=== PATIENT | female | born 1945 | race Caucasian/White ===

== ENCOUNTER 2021-11-18 01:57 | Inpatient (IN) | payer OTHER, SELFPAY ==
[2021-11-18] VITALS (21 sets, daily range): BP systolic 92–127; BP diastolic 36–84; PULSE 86–113; RESP 14–24; TEMP 36.3–36.6; O2SAT 96–100; BMI 32.4
--- NOTE | ~2021-11-18 | XR_ITS ---
EXAMINATION: XR chest 1V portable INDICATION: GI bleeding TECHNIQUE: Portable AP chest at zero 211 COMPARISON: 06/03/2013 FINDINGS: The lungs are free of acute opacities. No pleural effusion or pneumothorax. The cardiomedia stinal silhouette is normal. Calcified pulmonary nodules and calcified left hilar lymph nodes are con sistent with old granulomatous disease. IMPRESSION: 1. No acute cardiopulmonary abnormality. Reviewed, dictated and finalized at location A.
--- NOTE | 2021-11-18 02:01 | ECG_ITS ---
Measurements Intervals [place] Rate: 109 P: 62 OR: 168 QRS: -5 QRSD: 100 T: 74 QT: 341 QTc: 460 Interpretive Statements SINUS TACHYCARDIA LOW QRS VOLTAGE IN PRECORDIAL LEADS [QRS DEFLECTION < 1.0 mV IN CHEST LEADS] CANNOT RULE OUT ANTERIOR MYOCARDIAL INFARCTION, AGE INDETERMINATE ABNORMAL ECG NO PREVIOUS ECG AVAILABLE FOR COMPARISON Electronically Signed On 11-18-2021 14:38:21 CDT by Steven Obando M.D.
[2021-11-18] MEDS: PANTOPRAZOLE SODIUM IV 40 MG VIAL 80 MG IV PUSH (02:06)
--- NOTE | 2021-11-18 02:08 | ED.GIBLEED ---
HPI - GI Bleed General Chief complaint: GI Bleed Stated complaint: GI BLEED, HYPOTENSION History of Present Illness HPI Narrative: 76-year-old female brought in by ambulance. They called 911 tonight because she was extremely weak and needed some assistance getting up. When they got there the patient began having nausea vomiting and throwing up large quantities of coffee ground emesis with some blood clots in it. About the time this occurred she also had a brief syncopal episode and was unresponsive for about 30 seconds. She was noted to be somewhat hypotensive with a systolic pressure in the 80s in the field. Initiated IV and began a fluid bolus. Patient then was promptly brought to the emergency room. Patient denies any history of any upper GI bleeding in the past. She is not taking excessive use of nonsteroidal anti-inflammatories. She does have a pretty complicated medical history and most of her care has been provided to her at [facility] in [place]. She states they have been treated her a one-time for presumed seizures. She also has CLL is being seen an oncologist for that. She also has some degree of hypertension and congestive heart failure. She denies any abdominal pain. She had a very dark black stool this morning but has not been having it prior to that. Related Data Home Medications Medication Instructions Recorded Confirmed atorvastatin 40 mg tablet 40 mg PO HS 11/18/21 11/18/21 furosemide 20 mg tablet (Lasix) 20 mg PO DAILY 11/18/21 ibrutinib 420 mg tablet 420 mg PO DAILY 11/18/21 11/18/21 levetiracetam 750 mg tablet 750 mg PO BID 11/18/21 11/18/21 loteprednol etabonate 0.2 % eye drp 11/18/21 drops,suspension (Alrex) midodrine 2.5 mg tablet 2.5 mg PO BID 11/18/21 11/18/21 pantoprazole 40 mg tablet,delayed 40 mg PO HS 11/18/21 11/18/21 release pantoprazole 40 mg tablet,delayed 40 mg PO QAM 11/18/21 11/18/21 release (Protonix) spironolactone 100 mg tablet 100 mg PO DAILY 11/18/21 11/18/21 valacyclovir 500 mg tablet 500 mg PO DAILY 11/18/21 Allergies Allergy/AdvReac Type Severity Reaction Status Date / Time cephaloridine Allergy Unknown Unknown Verified 05/03/17 23:48 Penicillins Allergy Unknown Unknown Verified 05/03/17 23:48 adhesive tape Allergy Unknown Verified 11/18/21 02:12 cefazolin Allergy Unknown Verified 11/18/21 02:12 cefepime Allergy Unknown Verified 11/18/21 02:12 cefuroxime Allergy Unknown Verified 11/18/21 02:12 Cephalosporins Allergy Unknown Verified 11/18/21 02:12 ciprofloxacin Allergy Unknown Verified 11/18/21 02:12 silicone Allergy Unknown Verified 11/18/21 02:12 Review of Systems Review of Systems: CONSTITUTIONAL: Denies fever, chills, or sweats. EYES: Denies visual changes, redness, or discharge. ENT: Denies rhinorrhea, congestion, sore throat, or otalgia. CARDIOVASCULAR: Denies chest pain, palpitations, or edema. RESPIRATORY: Denies cough or dyspnea. GASTROINTESTINAL: Vomiting of blood clots and coffee-ground emesis. No diarrhea denies any abdominal pain GENITOURINARY: Denies dysuria or hematuria. SKIN: Denies rash or itching. MUSCULOSKELETAL: Denies back pain, joint pain, or myalgia. NEUROLOGIC: Denies headache, numbness, or weakness. PSYCHIATRIC: Denies anxiety or depression. FORMERLY [facility], [facility]–1983 Past Medical History Medical History (Updated 11/18/21 @ 04:05 by Prosper Michel DO) Breast cancer CLL (chronic lymphocytic leukemia) Congestive heart failure Hypertension Seizure disorder Surgical History Surgical History (Updated 11/18/21 @ 02:23 by Prosper Michel DO) H/O bilateral mastectomy Family History Family History Father Cerebrovascular accident, Onset Age: 70 Patient's father is Mother Cerebrovascular accident, Onset Age: 75 Patient's mother is Sibling Family history of malignant neoplasm of breast in first degree relative Social History Soc
[2021-11-18] MEDS: ONDANSETRON INJ 4 MG/2 ML VIAL IV PUSH ×3 (02:09→12:02)
[2021-11-18] MEDS: SODIUM CHLORIDE 0.9% IV 1,000 ML 125 ML IV CONT ×2 (02:10→12:38)
[2021-11-18 02:30] LABS: Basophils Absolute Auto 0.1 K/mm3 (0.0-0.1); Basophils Percent Auto 0.1 % (0.2-1.2); Eosinophils Absolute Auto 0.2 K/mm3 (0-0.3); Eosinophils Percent Auto 0.2 % (0-4.4); Hematocrit 27.6 % (37.0-47.0); Immature Granulocyte Absolute 0.17 K/mm3 (0.00-0.031); Immature Granulocyte Percent A 0.2 % (0-0.5); Lymphocytes Absolute Auto 85.77 K/mm3 (0.9-3.2); Lymphocytes Percent Auto 92.5 % (18.3-44.2); Mean Corpuscular Hemoglobin 30.5 pg (26-34); Mean Corpuscular Volume 105.3 fl (80-100); Mean Platelet Volume 11.9 fl (7.4-10.4); Monocytes Absolute Auto 1.8 K/mm3 (0.1-0.6); Monocytes Percent Auto 1.9 % (2.6-8.5); Neutrophils Absolute Auto 4.8 K/mm3 (1.3-6.7); Neutrophils Percent Auto 5.1 % (45.5-73.1); Platelet Count Result 180 k/mm3 (150-375); Red Blood Count 2.62 M/mm3 (4.2-5.4); Red Cell Distribution Width 16.4 % (11.5-14.5)
[2021-11-18 02:41] LABS: Alanine Aminotransferase 34 U/L (6-35); Albumin Level 3.1 g/dL (3.5-5.1); Alkaline Phosphatase 73 U/L (38-126); Anion Gap 11 mmol/L (8-16); Aspartate Amino Transferase 39 U/L (14-36); Blood Urea Nitrogen 70 mg/dL (7-17); Calcium 9.8 mg/dL (8.4-10.2); Carbon Dioxide 23 mmol/L (22-30); Chloride 101 mmol/L (98-107); Estimated CRCL calculation 37 ml/min; Estimated Glomerular Filt Rate 40; Glucose 112 mg/dL (65-110); INR 1.2; Partial Thromboplastin Time 26.4 SECONDS (22.3-36.8); Potassium 4.4 mmol/L (3.4-5.0); Sodium 135 mmol/L (137-145)
[2021-11-18 02:50] LABS: White Blood Count 92.7 K/mm3 (4.5-10.0)
[2021-11-18 03:11] LABS: Anisocytosis 1+ (NORMAL); Macrocytosis 1+ (NORMAL); Platelet Estimate Adequate (Adequate)
--- NOTE | 2021-11-18 03:51 | PM.IMHP ---
H&P: HPI History of Present Illness Date/Time: 11/18/21 03:51 Chief Complaint: hematemesis Narrative: This is a 76-year-old female with past medical history significant for CLL, breast cancer, hypertension, congestive heart failure. Patient was in her usual state of health until chief design branch hours when she went to use her commode fell over backwards on the bed and then bouncing to the floor who was awake her the known is and found her down called EMS to help placing her back in the bed once EMS arrived and they were trying to place her back in the bed she had an episode of unresponsiveness and large hematemesis. history has been obtained mainly from who is at bedside as patient is debilitated and obtunded unable to give any history. in emergency room patient had another hematemesis. Patient denies the use of NSAIDs only uses Tylenol has epigastric abdominal pain. Preliminary workup was significant for WBC 49042, hemoglobin of 8, MCV 105, BUN 70 creatinine 1.3. patient had systolic running in the 90s with diastolic in the 60s. Patient is been admitted for further evaluation management and treatment. [facility] Past Medical History Medical History (Updated 11/18/21 @ 06:01 by José Miguel Verduzco MD) Breast cancer CLL (chronic lymphocytic leukemia) Congestive heart failure Hypertension Seizure disorder Surgical History Surgical History (Updated 11/18/21 @ 02:23 by Prosper Michel DO) H/O bilateral mastectomy Family History Family History Father Cerebrovascular accident, Onset Age: 70 Patient's father is Mother Cerebrovascular accident, Onset Age: 75 Patient's mother is Sibling Family history of malignant neoplasm of breast in first degree relative Social History Social History Smoking status: Never smoker Alcohol intake: never Substance use: never Substance use type: does not use Living arrangements: with family Spiritual care concerns: No Meds Home Medications and Allergies Home Medications Medication Instructions Recorded Confirmed Type atorvastatin 40 mg tablet 40 mg PO HS 11/18/21 11/18/21 History furosemide 20 mg tablet (Lasix) 20 mg PO DAILY 11/18/21 History ibrutinib 420 mg tablet 420 mg PO DAILY 11/18/21 11/18/21 History levetiracetam 750 mg tablet 750 mg PO BID 11/18/21 11/18/21 History loteprednol etabonate 0.2 % eye drp 11/18/21 History drops,suspension (Alrex) midodrine 2.5 mg tablet 2.5 mg PO BID 11/18/21 11/18/21 History pantoprazole 40 mg tablet,delayed 40 mg PO HS 11/18/21 11/18/21 History release pantoprazole 40 mg tablet,delayed 40 mg PO QAM 11/18/21 11/18/21 History release (Protonix) spironolactone 100 mg tablet 100 mg PO DAILY 11/18/21 11/18/21 History valacyclovir 500 mg tablet 500 mg PO DAILY 11/18/21 History Allergies Allergy/AdvReac Type Severity Reaction Status Date / Time cephaloridine Allergy Unknown Unknown Verified 05/03/17 23:48 Penicillins Allergy Unknown Unknown Verified 05/03/17 23:48 adhesive tape Allergy Unknown Verified 11/18/21 02:12 cefazolin Allergy Unknown Verified 11/18/21 02:12 cefepime Allergy Unknown Verified 11/18/21 02:12 cefuroxime Allergy Unknown Verified 11/18/21 02:12 Cephalosporins Allergy Unknown Verified 11/18/21 02:12 ciprofloxacin Allergy Unknown Verified 11/18/21 02:12 silicone Allergy Unknown Verified 11/18/21 02:12 Vital Signs Vital Signs - 24 hr 11/18/21 01:59 11/18/21 02:21 11/18/21 02:41 Temperature 97.3 F L Pulse Rate 113 H 108 H Respiratory Rate 23 H 24 H Blood Pressure 111/69 109/63 92/67 L Pulse Oximetry 98 97 Oxygen Delivery Room Air 11/18/21 03:03 11/18/21 02:41 11/18/21 02:45 Temperature Pulse Rate 102 H 108 H 107 H Respiratory Rate 16 Blood Pressure 102/72 92/67 L Pulse Oximetry 97 97 97 Oxygen Deli
--- NOTE | 2021-11-18 03:59 | PC.NURSE ---
0358 Thalia from [facility] transfer center calls to get triage information and to request a covid swab and result. Thalia leaves her number of [phone] to call back when her covid results.
--- NOTE | 2021-11-18 04:40 | PC.NURSE ---
This patient, Eula Espinoza, was admitted to Intensive Care Unit-4. Patient/family oriented to hospital policies and general routines including ID bracelet, bed and alarms, visiting hours, pain management, procedures, bathroom and other care routines, personal items, smoking policy, room service/diet, and visiting hours. Information on how to activate the Rapid Response Team has been discussed. Patient/Family are encouraged to report perceived risks to care and to ask questions if they do not understand what they are told or what they should do.
[2021-11-18 04:46] LABS: SARS-CoV-2 RNA PCR Negative
[2021-11-18 06:43] LABS: Smudge Cells PRESENT
--- NOTE | 2021-11-18 07:00 | PC.NURSE ---
0630 Thalia from [facility] transfer center [id number] Number to [facility] [phone]. Accepting MD Dr Crane.
[2021-11-18] MEDS: levETIRAcetam IV 750 MG in DEXTROSE 5% 100 ML 430 MG IVPB (09:09)
[2021-11-18 09:32] LABS: Hematocrit 30.4 % (37.0-47.0); Hemoglobin 9.1 g/dL (12.0-15.0); Mean Corpuscular HGB Conc 29.9 g/dl (32-36); Mean Corpuscular Hemoglobin 31.9 pg (26-34); Mean Corpuscular Volume 106.7 fl (80-100); Mean Platelet Volume 11.4 fl (7.4-10.4); Platelet Count Result 123 k/mm3 (150-375); Red Blood Count 2.85 M/mm3 (4.2-5.4)
[2021-11-18 09:40] LABS: White Blood Count 50.6 K/mm3 (4.5-10.0)
--- NOTE | 2021-11-18 10:26 | WPDCNINT ---
Assessment and Plan Assessment and plan (1) Acute upper gastrointestinal bleeding: Code(s): K92.2 - Gastrointestinal hemorrhage, unspecified Status: Acute Assessment and Plan: Patient presented with acute upper GI bleeding which could be secondary to peptic ulcer disease versus Marilou-Mann tear or gastritis. Malignancy is also possible. Coags were normal Chest x-ray was negative Continue IV PPI infusion Patient was transfused 1 unit PRBC and most recent hemoglobin is 9.1 Continue serial hemoglobin monitoring GI has been consulted but patient is awaiting transfer to [facility] Blood pressure is adequate at this time and will continue monitoring Will give IV fluid bolus and continue IV fluid infusion (2) Acute blood loss anemia: Code(s): D62 - Acute posthemorrhagic anemia Status: Acute Assessment and Plan: See above (3) Chronic lymphocytic leukemia: Code(s): C91.10 - Chronic lymphocytic leukemia of B-cell type not having achieved remission Status: Acute Assessment and Plan: Treatment deferred to accepting physician as patient is being transferred to [facility] (4) Seizure disorder: Code(s): G40.909 - Epilepsy, unspecified, not intractable, without status epilepticus Status: Acute Assessment and Plan: Continue Keppra I will change it to IV (5) Nausea: Code(s): R11.0 - Nausea Status: Acute Assessment and Plan: Ananda Mccracken Plan DVT prophylaxis -SCDs Stress ulcer prophylaxis -patient is on PPN few Nutrition -NPO Code Status - Full Code Patient is awaiting transfer to [facility] [employer] Consult Note Consult date: 11/18/21 Reason for consult: Upper GI bleed HPI: Eula Espinoza is a 76 year old female brought by EMS with upper GI bleed. Patient was using a bedside commode at night when she became dizzy and passed out. She slumped on the bed was right beside the commode. Her could not get her back in the bed has called EMS. When EMS arrived patient had a vomiting which had blood as stated with hence patient was brought to ER. In ER patient was hypertensive and was given IV fluid bolus hemoglobin was 8 and PRBC transfusion was ordered. Patient was admitted to ICU for further evaluation management. Patient at this time states that she is feeling much better and denies any new complaints. She states she still has nausea but no other complaints. Patient denies fever, chest pain, shortness of breath, cough, abdominal pain,, diarrhea, headache or constipation. She states she does have trouble with ambulation and requires wheelchair. She does report episodes of dizziness. She states that she did pass out for short period of time but did not hit her head as she slumped over in her bed. She states that she goes to [facility] for all her healthcare including treatment for CLL. She denies any use of NSAIDs She denies smoking alcohol or drug use Review of Systems Review of Systems: All systems reviewed & are unremarkable except as noted in HPI and below (HPI) [facility] Past Medical History Medical History Breast cancer CLL (chronic lymphocytic leukemia) Congestive heart failure Hypertension Seizure disorder Surgical History Surgical History H/O bilateral mastectomy Family History Family History Father Cerebrovascular accident, Onset Age: 70 Patient's father is Mother Cerebrovascular accident, Onset Age: 75 Patient's mother is Sibling Family history of malignant neoplasm of breast in first degree relative Social History Social History Smoking status: Never smoker Alcohol intake: never Substance use: never Substance use type: does not use Living ar
[2021-11-18] MEDS: LACTATED RINGERS 1,000 ML 999 ML IV CONT (10:52)
--- NOTE | 2021-11-18 10:53 | PM.IMPN ---
Progress Note: A&P Assessment and Plan (1) Acute upper gastrointestinal bleeding: Code(s): K92.2 - Gastrointestinal hemorrhage, unspecified Status: Acute Assessment and Plan: Patient presented with acute upper GI bleeding which could be secondary to peptic ulcer disease versus Marilou-Mann tear or gastritis. Malignancy is also possible. Coags were normal Continue IV PPI infusion Status post transfusion. Plan to transfer to [place] (2) Acute blood loss anemia: Code(s): D62 - Acute posthemorrhagic anemia Status: Acute Assessment and Plan: See above (3) Chronic lymphocytic leukemia: Code(s): C91.10 - Chronic lymphocytic leukemia of B-cell type not having achieved remission Status: Acute Assessment and Plan: Treatment deferred to accepting physician as patient is being transferred to [facility] (4) Seizure disorder: Code(s): G40.909 - Epilepsy, unspecified, not intractable, without status epilepticus Status: Acute Assessment and Plan: Continue Keppra I will change it to IV (5) Nausea: Code(s): R11.0 - Nausea Status: Acute Assessment and Plan: P.rnelia Mccracken Plan DVT prophylaxis -SCDs Stress ulcer prophylaxis -patient is on PPN few Nutrition -NPO Code Status - Full Code Patient is awaiting transfer to [facility] Subjective Date/time seen: 11/18/21 10:53 No complaints, awaiting transfer to outside facility Exam Narrative: General: Pt is alert awake and in NAD Lungs/Chest: Trachea central Clear BS B/L, No crackles or wheezing. Cardiac: RRR. Normal S1 S2. No murmurs Circulation: Pedal pulses are intact and symmetrical. Abdomen: Normal bowel sounds.. Soft. NT. ND. Extremities: No clubbing, cyanosis or edema. Warm : Gusman in place Neurologic: Follows commands. Moves all 4 extremities PERRL Skin: No Rash Objective Data Vital Signs Vital Signs: Vital Signs - 24 hr 11/18/21 01:59 11/18/21 02:21 11/18/21 02:41 Temperature 97.3 F L Pulse Rate 113 H 108 H Respiratory Rate 23 H 24 H Blood Pressure 111/69 109/63 92/67 L Pulse Oximetry 98 97 Oxygen Delivery Room Air 11/18/21 03:03 11/18/21 02:41 11/18/21 02:45 Temperature Pulse Rate 102 H 108 H 107 H Respiratory Rate 16 Blood Pressure 102/72 92/67 L Pulse Oximetry 97 97 97 Oxygen Delivery 11/18/21 03:00 11/18/21 03:01 11/18/21 03:15 Temperature Pulse Rate 101 H 101 H 102 H Respiratory Rate 14 15 Blood Pressure 102/72 Pulse Oximetry 96 97 98 Oxygen Delivery 11/18/21 03:21 11/18/21 04:03 11/18/21 04:30 Temperature 97.5 F L 97.5 F L Pulse Rate 105 H 109 H Respiratory Rate 19 21 H Blood Pressure 103/68 110/48 L Pulse Oximetry 98 96 Oxygen Delivery 11/18/21 04:56 11/18/21 06:00 11/18/21 06:00 Temperature 97.5 F L 97.5 F L Pulse Rate 103 H 99 99 Respiratory Rate 15 15 Blood Pressure 118/51 L 121/58 L Pulse Oximetry 100 100 Oxygen Delivery 11/18/21 05:12 11/18/21 06:12 11/18/21 07:12 Temperature 97.5 F L 97.6 F 97.7 F Pulse Rate 103 H 96 91 Respiratory Rate 16 17 16 Blood Pressure 114/56 L 109/46 L 117/65 Pulse Oximetry 100 99 99 Oxygen Delivery 11/18/21 07:52 11/18/21 07:56 11/18/21 08:00 Temperature 97.8 F Pulse Rate 94 Respiratory Rate 22 H Blood Pressure 116/84 Pulse Oximetry 100 100 Oxygen Delivery Room Air Room Air 11/18/21 08:00 11/18/21 08:00 Temperature 97.8 F Pulse Rate 90 90 Respiratory Rate 19 Blood Pressure 104/36 L Pulse Oximetry 100 Oxygen Delivery Intake/Output Intake/Output: Intake & Output 11/15/21 11/16/21 11/17/21 11/18/21 23:59 23:59 23:59 23:59 Intake Total 350 Balance 350 Meds/Results Medications: Active Medications Generic Name Dose Route Start Last Admin Trade Name Freq PRN Reason Stop Dose Admin Sodium Chloride 1,000 mls @ 125 mls/hr 11/18/21 02:00 11/18/21 02:10 Normal Saline Iv IV CONT 1
[2021-11-18] MEDS: TUBING, BLOOD PLUM PUMP TUBING 1 EACH XX (12:38)
--- NOTE | 2021-11-18 13:12 | PC.NURSE ---
Patient transferred to [facility] Room 10-823 at 1312 via ambulance. Report given to ASHLEY Vee.
--- NOTE | 2021-12-26 06:12 | PM.TDS ---
Transfer Discharge Sum: Prov Provider Date of admission: 11/18/21 03:58 Primary care physician: PHYSICIAN NOT ON STAFF Admitting clinician: José Miguel Verduzco MD Consults: 11/18/21 Consult to Physician Routine Comment: Consulting Provider: Valdez Coello Reason for consultation: Upper GI Bleed Has provider been notified: Yes Consult to Physician Routine Comment: Consulting Provider: Jasen Pacheco Reason for consultation: Upper GI Bleed Has provider been notified: Yes DS: Admitting Diagnosis Discharge Date 11/18/21 Admitting Diagnosis recurrent upper GI bleeding DS: Discharge Diagnosis Discharge Diagnosis Plan Acute on chronic blood-loss anemia: Transfuse as needed. Transfer to outside facility Patient presented to ED with recurrent upper GI bleeding.? Recent hospitalization at [facility] with cauterization of duodenal ulcers.? Recurrent melena, dark red bleeding per rectum.? BP upon arrival 70/52, with heart rate greater than 100.? Patient very pale and weak appearing.? Fluids started immediately.? Patient's BP improved to 110s.? Laboratory evaluation showing markedly elevated leukocytosis of 36.4.? This is consistent with patient's history of CLL.? This is improved from labs on 11/18 in which her white blood cell count was up to 92,000. Hemoglobin today 6.9, hematocrit 22%.? Type and screen ordered with 2 units of packed red blood cells.? Thrombocytopenia at 104.? INR 1.1.? CMP revealing BUN of 23 with normal creatinine, consistent with acute GI bleeding.? Potassium slightly low at 3.? This will be replaced via IV.? Bicarb low at 14, consistent with GI losses.? Calcium also low at 6.6.? IV calcium gluconate started. VS continue to stabilize.? Discussed case with [facility] and spoke with oncology fellow.? Recommend adding on fibrinogen level.? Resulted at 210.? Per patient's recent lab reports yesterday, hemoglobin has dropped almost 3 points in the last 24 hours since discharge.? Patient has been accepted for transfer and admission to [facility] under her oncologist.? COVID testing ordered and transfer center will be notified of results to begin bed search. I was told there should be a bed available under Oncology service.? I have thoroughly discussed case findings and plan for transfer with patient and family at bedside.? They are in agreement.? All questions answered.? Transfer Discharge Sum: Med Medications Active and Home Medications: Home Medications atorvastatin 40 mg tablet 40 mg PO HS 11/18/21 [History Confirmed 11/18/21] furosemide 20 mg tablet (Lasix) 20 mg PO DAILY 11/18/21 [History] ibrutinib 420 mg tablet 420 mg PO DAILY 11/18/21 [History Confirmed 11/18/21] levetiracetam 750 mg tablet 750 mg PO BID 11/18/21 [History Confirmed 11/18/21] loteprednol etabonate 0.2 % eye drops,suspension (Alrex) drp 11/18/21 [History] midodrine 2.5 mg tablet 2.5 mg PO BID 11/18/21 [History Confirmed 11/18/21] pantoprazole 40 mg tablet,delayed release 40 mg PO HS 11/18/21 [History Confirmed 11/18/21] pantoprazole 40 mg tablet,delayed release (Protonix) 40 mg PO QAM 11/18/21 [History Confirmed 11/18/21] spironolactone 100 mg tablet 100 mg PO DAILY 11/18/21 [History Confirmed 11/18/21] valacyclovir 500 mg tablet 500 mg PO DAILY 11/18/21 [History] Transfer Discharge Sum: Hosp Hospital Course Hospital course: Eula Espinoza is a 76 year old female Time Spent with Patient Time attestation: Total time spent providing and/or coordinating transfer services: Exam Narrative: PATIENT IS LAYING IN A STRETCHER CHRONICALLY ILL-LOOKING GENERALIZED PALLOR Const: General: comfortable, no acute distress, well developed, alert and awake Nutritional Appearance: average body habitus Orientation/consciousness: patient oriented x3 HENMT: Head: normal to inspection, normocephalic and atraumatic Ears: hearing grossly normal bilaterally Face and sinus: normal facial exam Eyes: General: appeara
== END 2021-11-18 13:12 | disposition short-term general hospital (02) | DRG 378 ==
LOC: ANHED 04:05 → ANHICU 04:33
PROVIDERS: Internal Medicine; Admitting Provider Internal Medicine; Emergency Provider Emergency Medicine; Visit Provider Internal Medicine
DX: K92.2 Gastrointestinal hemorrhage, unspecified (principal); C91.10 Chronic lymphocytic leukemia of B-cell type not having achieved remission; D62 Acute posthemorrhagic anemia; K92.0 Hematemesis; G40.909 Epilepsy, unspecified, not intractable, without status epilepticus; Z20.822 Contact with and (suspected) exposure to COVID-19; I11.0 Hypertensive heart disease with heart failure; I50.9 Heart failure, unspecified; R53.81 Other malaise; D69.6 Thrombocytopenia, unspecified; Z85.3 Personal history of malignant neoplasm of breast
CPT/HCPCS: 36415; 36430; 71045; 80053; 85025; 85027; 85610; 85730; 86850; 86900; 86901; 86920; 93005; 96374; 96375; 99285; C9113; C9803; J1953; J2405; J7030; J7060; J7120; P9016; U0003; U0005

== ENCOUNTER 2021-11-25 14:33 | Emergency (ER) | payer OTHER, SELFPAY ==
[2021-11-25] VITALS (20 sets, daily range): BP systolic 70–128; BP diastolic 41–74; PULSE 83–106; RESP 13–26; TEMP 35.9–36.6; O2SAT 94–100
[2021-11-25 14:56] LABS: Basophils Absolute Auto 0.1 K/mm3 (0.0-0.1); Basophils Percent Auto 0.2 % (0.2-1.2); Eosinophils Absolute Auto 0.2 K/mm3 (0-0.3); Eosinophils Percent Auto 0.4 % (0-4.4); Immature Granulocyte Percent A 0.3 % (0-0.5); Immature Platelet Fraction Pct 3.6 % (0.9-11.2); Lymphocytes Absolute Auto 30.92 K/mm3 (0.9-3.2); Mean Corpuscular HGB Conc 31.4 g/dl (32-36); Mean Corpuscular Hemoglobin 31.2 pg (26-34); Mean Corpuscular Volume 99.5 fl (80-100); Mean Platelet Volume 10.8 fl (7.4-10.4); Monocytes Absolute Auto 1.1 K/mm3 (0.1-0.6); Neutrophils Absolute Auto 4.1 K/mm3 (1.3-6.7); Neutrophils Percent Auto 11.1 % (45.5-73.1); Platelet Count Result 104 k/mm3 (150-375); Red Blood Count 2.21 M/mm3 (4.2-5.4); Red Cell Distribution Width 19.9 % (11.5-14.5); White Blood Count 36.4 K/mm3 (4.5-10.0)
[2021-11-25 15:05] LABS: Alanine Aminotransferase 21 U/L (6-35); Albumin Level 1.5 g/dL (3.5-5.1); Alkaline Phosphatase 43 U/L (38-126); Anion Gap 8 mmol/L (8-16); Aspartate Amino Transferase 24 U/L (14-36); Bilirubin,Total 1.2 mg/dL (0.2-1.3); Blood Urea Nitrogen 23 mg/dL (7-17); Calcium 6.6 mg/dL (8.4-10.2); Carbon Dioxide 14 mmol/L (22-30); Chloride 118 mmol/L (98-107); Estimated CRCL calculation 67 ml/min; Estimated Glomerular Filt Rate > 60; Glucose 130 mg/dL (65-110); Sodium 140 mmol/L (137-145)
[2021-11-25 15:17] LABS: INR 1.4
[2021-11-25 15:18] LABS: Partial Thromboplastin Time 29.1 SECONDS (22.3-36.8)
--- NOTE | 2021-11-25 15:30 | ED.GENADULT ---
HPI - General Adult General Chief complaint: GI Bleed <Eryn Ren PA-C - Last Filed: 11/25/21 18:11> Stated complaint: rectal bleeding, low bp <AFUA Love Last Filed: 11/25/21 18:11> Time Seen by Provider: 11/25/21 15:10 <AFUA Love Last Filed: 11/25/21 18:11> Source: patient, family and old records reviewed <AFUA Love Last Filed: 11/25/21 18:11> Mode of arrival: EMS <AFUA Love Last Filed: 11/25/21 18:11> Limitations: no limitations <AFUA Love Last Filed: 11/25/21 18:11> History of Present Illness HPI narrative: Patient is a 76-year-old female who presents the ED via EMS with report of GI bleed. Patient was seen in the ED on 11/18 here for weakness, hypotension, upper GI bleeding. She was admitted to the ICU here until a bed became available at [facility] where she was transferred. Patient has a history of CLL for which she sees oncology at [facility]. She was admitted for 6 days at [place] and discharged home yesterday. Family at bedside states she was found to have esophageal and duodenal ulcers. She had the duodenal ulcers cauterized while inpatient. She was doing well at first being home, but began having melanotic stools again last night. She had several large episodes of dark red/black bleeding per rectum with clots today. They attempted to drive back to [place] today, but patient became very weak and hypotensive at home. EMS was then called. BP per EMS was 60s over 40s. They did not feel comfortable with transport to [place] and thus patient was brought here. Patient is complaining of lower back pain and upper abdominal pain. No nausea currently. No fever. Dark red blood noted on sheets and down patient's legs. <AFUA Love Last Filed: 11/25/21 18:11> Related Data Home medications: Home Medications Medication Instructions Recorded Confirmed atorvastatin 40 mg tablet 40 mg PO HS 11/18/21 11/18/21 furosemide 20 mg tablet (Lasix) 20 mg PO DAILY 11/18/21 ibrutinib 420 mg tablet 420 mg PO DAILY 11/18/21 11/18/21 levetiracetam 750 mg tablet 750 mg PO BID 11/18/21 11/18/21 loteprednol etabonate 0.2 % eye drp 11/18/21 drops,suspension (Alrex) midodrine 2.5 mg tablet 2.5 mg PO BID 11/18/21 11/18/21 pantoprazole 40 mg tablet,delayed 40 mg PO HS 11/18/21 11/18/21 release pantoprazole 40 mg tablet,delayed 40 mg PO QAM 11/18/21 11/18/21 release (Protonix) spironolactone 100 mg tablet 100 mg PO DAILY 11/18/21 11/18/21 valacyclovir 500 mg tablet 500 mg PO DAILY 11/18/21 <AFUA Love Last Filed: 11/25/21 18:11> Allergies/adverse reactions: Allergies Allergy/AdvReac Type Severity Reaction Status Date / Time cephaloridine Allergy Unknown Unknown Verified 05/03/17 23:48 Penicillins Allergy Unknown Unknown Verified 05/03/17 23:48 adhesive tape Allergy Unknown Verified 11/18/21 02:12 cefazolin Allergy Unknown Verified 11/18/21 02:12 cefepime Allergy Unknown Verified 11/18/21 02:12 cefuroxime Allergy Unknown Verified 11/18/21 02:12 Cephalosporins Allergy Unknown Verified 11/18/21 02:12 ciprofloxacin Allergy Unknown Verified 11/18/21 02:12 silicone Allergy Unknown Verified 11/18/21 02:12 <AFUA Love Last Filed: 11/25/21 18:11> Review of Systems Review of Systems: CONSTITUTIONAL: Denies fever, chills, or sweats. GASTROINTESTINAL: Reports upper abdominal pain, melena. Denies nausea, vomiting. MUSCULOSKELETAL: Reports lower back pain. <AFUA Love Last Filed: 11/25/21 18:11> All systems reviewed & are unremarkable except as noted in HPI and below <AFUA Love Last Filed: 11/25/21 18:11> [facility] Past Medical History Medical History: Medical History (Updated 11/26/21 @ 00:00 by Background Lan) Breast cancer CLL (chronic lymphocytic leukemia) Congestive heart fa
[2021-11-25 15:36] LABS: Hemoglobin 6.9 g/dL (12.0-15.0)
[2021-11-25 15:38] LABS: Platelet Estimate Decreased (Adequate)
[2021-11-25 15:39] LABS: Anisocytosis 1+ (NORMAL); Hypochromasia 1+ (NORMAL); Smudge Cells PRESENT
[2021-11-25] MEDS: CALCIUM GLUC 1,000 MG/NS 100ML 1,000 MG/100 ML BAG 200 MG IVPB (16:12)
[2021-11-25] MEDS: fentaNYL CITRATE INJ (*CRX) 100 MCG/2 ML VIAL 25 MCG IV PUSH ×3 (16:27→21:40)
[2021-11-25] MEDS: POTASSIUM CHLORIDE INJ 40 MEQ in SODIUM CHLORIDE 0.9% IV 500 ML 130 MEQ IVPB (16:29)
[2021-11-25] MEDS: PANTOPRAZOLE SODIUM IV 40 MG VIAL IV PUSH (17:03)
[2021-11-25 17:22] LABS: Fibrinogen 210 mg/dl (215-510)
[2021-11-25 17:45] LABS: SARS-CoV-2 RNA PCR Negative
[2021-11-25] MEDS: SODIUM CHLORIDE 0.9% IV 250 ML 30 ML IV CONT (17:46)
[2021-11-25] MEDS: TUBING, BLOOD SET 1 EACH XX ×2 (17:46→19:51)
[2021-11-25] MEDS: SODIUM CHLORIDE 0.9% IV 250 ML (19:51)
--- NOTE | 2021-11-25 23:10 | PC.NURSE ---
patient left AMA. Dr Michel and rn hemodialysis charge aware. discussed risks of leaving AMA. per Dr. Michel, patient could be offered admission to this facility and offered to call [facility] to inquire about transfer. patient refused and states, I am going to [facility] . patient did receive 2 units of PRBCs prior to leaving. BP was stable and patient did not have any bloody stools while in ED. she reported that she had her last BM in route from home [employer]. patient did sign AMA papers and verbalize understanding of risks. present in room during conversation and he was present when patient signed AMA papers. assisted patient into wheelchair with staff assist x2. patient weak but denied dizziness or any other complaints
--- NOTE | 2021-11-25 23:23 | PC.NURSE ---
Spoke with Gisell sweeney and they are aware that patient left AMA. Spoke with Claire at this time
== END 2021-11-25 23:00 | disposition left against medical advice (07) ==
PROVIDERS: Physician Assistant; Emergency Provider Emergency Medicine
DX: K92.2 Gastrointestinal hemorrhage, unspecified (principal); D62 Acute posthemorrhagic anemia; C91.10 Chronic lymphocytic leukemia of B-cell type not having achieved remission; Z20.822 Contact with and (suspected) exposure to COVID-19; I50.9 Heart failure, unspecified; I11.0 Hypertensive heart disease with heart failure; G40.901 Epilepsy, unspecified, not intractable, with status epilepticus; Z85.3 Personal history of malignant neoplasm of breast; Z90.13 Acquired absence of bilateral breasts and nipples
CPT/HCPCS: 36415; 36430; 80053; 85025; 85055; 85384; 85610; 85730; 86850; 86900; 86901; 86920; 96361; 96365; 96366; 96367; 96368; 96375; 96376; 99285; C9113; C9803; J0610; J3010; J3480; J7040; J7050; J7060; P9016; U0003; U0005